=== PATIENT | male | born 1975 | race Caucasian/White ===

== ENCOUNTER 2020-07-17 06:46 | Outpatient (NON) | payer OTHER, SELFPAY ==
[2020-07-17 22:58] LABS: SARS-CoV-2 RNA PCR Negative
== END 2020-07-17 06:47 ==
PROVIDERS: PCP Family Medicine; Visit Provider Nurse Practitioner
DX: Z20.828 Contact with and (suspected) exposure to other viral communicable diseases (principal)
CPT/HCPCS: 87635; C9803; U0003

== ENCOUNTER → 2021-02-12 08:40 | Outpatient (CLI) | payer BC, SELFPAY ==
--- NOTE | ~2021-02-12 | XR_ITS ---
XR hip BI wo pelvis 02/12/2021 09:43 Indication: Hip pain. Cerebral palsy. Procedure: 2 views each hip Comparison: 10/21/2015 Findings: There is mild symmetric osteoarthritis of the hips. No fracture or traumatic malalignment. Pelvic rings are intact. Sacral foramen are symmetric. No significant soft tissue abnormality. No rad iopaque foreign bodies. Impression: 1: Mild symmetric osteoarthritis of the hips. Reviewed, dictated and finalized at location A. Impression: 1: Mild symmetric osteoarthritis of the hips.
--- NOTE | ~2021-02-12 | XR_ITS ---
XR lumbar spine 1V 02/12/2021 09:43 Indication: Cerebral palsy. Back pain. Procedure: Lateral view of the lumbar spine Comparison: No prior studies for comparison. Findings: No acute fracture or traumatic malalignment. No evidence for spondylolisthesis. There are m ild facet degenerative changes at L5-S1. There is mild wedge-shaped appearance to L1, likely developm ental or chronic. No evidence for spondylolisthesis. Impression: 1: Mild lumbar spondylosis. Reviewed, dictated and finalized at location A. Impression: 1: Mild lumbar spondylosis.
== END ==
PROVIDERS: PCP Family Medicine; Visit Provider Nurse Practitioner Family
DX: G80.9 Cerebral palsy, unspecified (principal); M16.0 Bilateral primary osteoarthritis of hip; M47.896 Other spondylosis, lumbar region
CPT/HCPCS: 72020; 73521

== ENCOUNTER 2021-02-18 08:13 | Outpatient (RCR) | payer BC, SELFPAY ==
--- NOTE | 2021-02-18 09:56 | PTOPEVAL ---
PHYSICAL THERAPY EVALUATION AND DISCHARGE Thank you for referring Minor Márquez to [facility].? The patient is not scheduled to be seen for further therapy at this time. We will be happy to work with Minor in the future as needs arise. Please review, sign, date and return this note ODETTE. I agree with and certify that the following plan of care is medically necessary. Referring Physician Date Attending Provider: Shelly Aguayo NP Evaluation Outpatient Past Medical History Neurological History Hx Other Neurological Disorders Yes: cerebral palsy Diagnosis cerebral palsy, LE spasticity Subjective Information Minor is here today for Query Text:As Reported By Patient/ physical therapy evaluation Family seeking selective dorsal rhizotomy procedure as an adult. He presents to clinic ambulating independently with a cane. He reports that he is experiencing changes in the level of spasticity that is causing a decline in function. Over the last month he has taken 3 days off of work because spastic episodes have caused him to be bed ridden and he is finding that even on good days he is less able to participate in activities with his daughter including sitting on the floor to play or being in the yard as the spasticity limits safety and impairs postures to be unable to perform tasks. At this time, he is seeking selective dorsal rhizotomy procedure to reduce spasticity of LE in order to increase his functional abilities and reduce pain. He takes medication for the spasticity and he exercises and stretches at least 2x/week. Prior Level of Function Activity Level (Last 3 Months) Occupation security analyst Medications baclofen and tizanidine Pain Score Pain Score 0: Self Report Gross Lower Extremity Range of Motion tom test: R: -32, L: -29 Comments hip abduction supine: R: 16, L: 11 hip lateral rotation prone: R:36, L: 24 popliteal anmgle: R: -69, L -86 knee extensio
== END 2021-02-21 10:35 | disposition home or self-care (01) ==
LOC: ANHPT 08:13
PROVIDERS: PCP Family Medicine; Visit Provider Nurse Practitioner Family
DX: G80.9 Cerebral palsy, unspecified (principal)
CPT/HCPCS: 97162

== ENCOUNTER 2022-01-03 10:31 | Outpatient (CLI) | payer BC, SELFPAY ==
--- NOTE | ~2022-01-03 | CT_ITS ---
EXAMINATION: CT cervical spine wo con EXAM DATE: 01/03/2022 10:47 INDICATION: T14.8XXA - Other injury of unspecified body region, initi... TECHNIQUE: Spiral CT of the cervical spine was performed without contrast. Axial images were reviewe d. Coronal and sagittal reformatted images cervical spine were also reviewed. The dose-length produc t (DLP) for this examination was 496.24 mGy-cm. The exposure was tailored according to patient size (auto mA exposure control), and iterative reconstruction (ASIR) was used as additional dose reduction technique. There is no prior study for comparison. FINDINGS: No perched facet joint. There are no acute fractures identified. The vertebral bodies are aligned in the AP dimension. The odontoid process is intact. The lateral masses of C1 line up with C2. Prevertebral soft tissue and pre-dens space are within normal limits. There is moderate disc dise ase at C5-6, mild to moderate at the other cervical levels. Paraspinal soft tissue is unremarkable. Level by level evaluation: C2-C3: There is a mild diffuse disc bulge. Uncovertebral joint arthropathy: Moderate right, mild to moderate left. Facet joint arthropathy: Mild bilateral. Neural foraminal stenosis: Mild to moderate right, mild left. Central canal stenosis: Mild. C3-C4: There is a mild diffuse disc bulge. Uncovertebral joint arthropathy: Moderate to severe bilateral. Facet joint arthropathy: Mild to moderate bilateral. Neural foraminal stenosis: Moderate left, mild right. Central canal stenosis: Mild. C4-C5: There is a mild diffuse disc bulge. Uncovertebral joint arthropathy: Moderate right, mild to moderate left. Facet joint arthropathy: Mild to moderate right, mild left. Neural foraminal stenosis: Moderate right, mild left. Central canal stenosis: Mild. C5-C6: There is a moderate diffuse disc bulge. Uncovertebral joint arthropathy: Moderate to severe right, moderate left. Facet joint arthropathy: Mild to moderate bilateral. Neural foraminal stenosis: Moderate to severe bilateral. Central canal stenosis: Mild to moderate. C6-C7: There is a mild to moderate diffuse disc bulge. Uncovertebral joint arthropathy: Mild to moderate bilateral. Facet joint arthropathy: Mild to moderate bilateral. Neural foraminal stenosis: Mild bilateral. Central canal stenosis: Mild. C7-T1: There is a minimal diffuse disc bulge. Uncovertebral joint arthropathy: Mild bilateral. Facet joint arthropathy: Mild to moderate bilateral. Neural foraminal stenosis: No stenosis. Central canal stenosis: No stenosis. IMPRESSION: 1. C5-6 moderate to severe bilateral neural foraminal stenosis. 2. Less spondylosis other levels. Reviewed, dictated and finalized at location B.
== END 2022-01-03 10:32 | disposition home or self-care (01) ==
LOC: ANHIMG 10:34
PROVIDERS: PCP Family Medicine; Visit Provider Nurse Practitioner Family
DX: T14.8XXA Other injury of unspecified body region, initial encounter (principal); M47.813 Spondylosis without myelopathy or radiculopathy, cervicothoracic region; M48.03 Spinal stenosis, cervicothoracic region
CPT/HCPCS: 72125

== ENCOUNTER 2022-03-03 08:43 | Outpatient (CLI) | payer BC, SELFPAY ==
--- NOTE | 2022-03-03 11:45 | NEURO_ITS ---
Impression: # Complains of pain in elbow. # Left ulnar neuropathy across the elbow. # No Carpal Tunnel Syndrome. # Normal needle/EMG exam. Nerve Conduction Studies Anti Sensory Summary Table Stim Site NR Peak (ms) P-T Amp (?V) Site1 Site2 Delta-P (ms) Dist (cm) Alphonse (m/s) Left Median Anti Sensory (2-3nd Digit) Wrist 2.4 59.7 Wrist 2-3nd Digit 2.4 14.0 58 Wrist 2.3 43.1 Wrist 2-3nd Digit 2.4 14.0 58 Left Radial Anti Sensory (Base 1st Digit) Wrist 1.9 24.3 Wrist Base 1st Digit 1.9 0.0 Left Ulnar Anti Sensory (5th Digit) Wrist 2.9 21.2 Wrist 5th Digit 2.9 14.0 48 Motor Summary Table Stim Site NR Onset (ms) O-P Amp (mV) Site1 Site2 Delta-0 (ms) Dist (cm) Alphonse (m/s) Left Median Motor (Abd Poll Brev) Wrist 2.8 3.9 Elbow Wrist 5.0 28.0 56 Elbow 7.8 5.6 Left Ulnar Motor (Abd Dig Minimi) Wrist 2.6 4.4 A Elbow Wrist 5.4 27.0 50 A Elbow 8.0 3.2 B Elbow Wrist 3.3 22.0 67 B Elbow 5.9 6.2 F Wave Studies NR F-Lat (ms) L-R F-Lat (ms) Left Median (Mrkrs) (Abd Poll Brev) 26.55 Left Ulnar (Mrkrs) (Abd Dig Min) 26.11 EMG Side Muscle Nerve Root Ins Act Fibs Amp Dur Recrt Comment Left 1stDorInt Ulnar C8-T1 Nml Nml Nml Nml Nml Left Ext Indicis Radial (Post Int) C7-8 Nml Nml Nml Nml Nml Left Ext Digitorum Radial (Post Int) C7-8 Nml Nml Nml Nml Nml Left BrachioRad Radial C5-6 Nml Nml Nml Nml Nml Left PronatorTeres Median C6-7 Nml Nml Nml Nml Nml Left Abd Poll Brev Median C8-T1 Nml Nml Nml Nml Nml Left ABD Dig Min Ulnar C8-T1 Nml Nml Nml Nml Nml Left Abd Poll Long Radial (Post Int) C7-8 Nml Nml Nml Nml Nml MTDD
== END 2022-03-03 08:44 | disposition home or self-care (01) ==
LOC: ANHNEURO 08:45
PROVIDERS: PCP Family Medicine; Visit Provider Family Medicine
DX: M25.522 Pain in left elbow (principal); G56.22 Lesion of ulnar nerve, left upper limb
CPT/HCPCS: 95886; 95909

== ENCOUNTER 2022-05-25 00:36 | Day surgery (SDC) | payer BC, SELFPAY ==
[2022-05-22 16:09] VITALS: BMI 22.1
--- NOTE | 2022-05-22 16:28 | SUR.PREOP ---
Report to the Outpatient Waiting Room, entrance under the green pavilion located off [facility], at time 0600 on date 05/25/22. OR Time: 0730. - You and your visitor will be asked to self-screen and do not enter if you have any COVID symptoms. - Only one visitor and NO children visitors are allowed at this time. - The patient visitor is requested to leave or wait in car when not with patient due to restrictions. - A mask is required within the hospital. Patients may have clear liquids (water, carbonated beverages, clear teas, apple juice) until 3 hours prior to surgery with a maximum of 20 ounces. - No food from midnight until time of surgery - Infants may have breast milk until 4 hours before surgery, infant formula 6 hours prior to surgery. - Children will be allowed to drink immediately following surgery. If applicable, please bring a bottle or sippy cup to assist with drinking. Juice, water, soda, and popsicles are readily available. For infants on formula, please bring formula the day of surgery. Pacifiers are allowed. Take the following medications with a SIP of water the morning of surgery:FLUOXETINE IF NEEDED Medications to discontinue per physician STOP ALL VITAMINES ASUPPLIMENTS FOR 3 DAYS PRIOR TO PROCEDURE Date to take last dose 05/22/22 Please no make-up, nail georgian, hairspray, perfume, deodorant, or body powder the day of surgery. No jewelry (including any body piercings) or valuables the day of surgery, leave them at home. Please take a shower or bath the night before, or the morning of, surgery with an antibacterial soap. Wear comfortable, loose fitting clothing. Children are encouraged to wear pajamas. - Jewelry must be removed prior to entering the operating room. Rings and piercings that are not removed may be cut off. - The hospital will not accept responsibility for valuables. - Please leave all valuables, including medications, at home the day of surgery. If you are going home after surgery, a licensed warehouse driver must drive you home. - NO public transportation without another adult. - We recommend that an adult stay with you for 24 hours following discharge. - We also recommend that you do not drive, make important decision, drink alcoholic beverages, or take any drugs that were not prescribed by your health care provider for at least 24 hours after your discharge time. For Pediatric surgeries, we recommend two adults accompany the child home (only one inside the building at this time). Follow any additional instructions given to you from your surgeon. If you or anyone in your household have experienced Covid symptoms in the past week, please notify your surgeon or the nurse liaison at the phone number below for possible testing. Telephone instructions given to SON VARNER and asked if any additional questions and then verbalized understanding. Patient advised to call surgeon office or pre surgery nurse liaison [phone] if any additional questions.
[2022-05-25] MEDS: LACTATED RINGERS 1,000 ML 30 ML IV CONT (06:30)
[2022-05-25 07:00] VITALS: BP 138/91; PULSE 66; RESP 16; TEMP 36.2; O2SAT 98
--- NOTE | 2022-05-25 07:05 | P.PNAN_ITS ---
Anes - Initial Pre Proc Eval Procedure: Operation Date: 05/25/22 07:30 Proposed Procedures p Left Ulnar Neuroplasty at Elbow - Gabino Sadler MD Date/Time: 05/25/22 07:05 Surgeon: Gabino Sadler MD Pre Op Diagnosis: left cubital tunnel syndrome Patient Data Age: 46 Gender: M Height: 1.75 m Weight: 68.04 kg Allergies Allergy/AdvReac Type Severity Reaction Status Date / Time lidocaine Allergy Unknown Wheezing Verified 05/22/22 16:09 Home Medications Medication Instructions Recorded Confirmed Type magnesium glycinate 100 mg tablet 200 mg PO DAILY 11/01/21 05/22/22 History fluoxetine 20 mg capsule 20 mg PO DAILY #30 caps 01/31/22 05/22/22 Rx Patient hx anesthesia problems: none Family hx anesthesia problems: none Results Review: All pre-operative results and documents have been reviewed as part of the pre- operative evaluation. PMFSH Past Medical History Medical History Anxiety Arthritis Cerebral palsy Shingles Surgical History Surgical History Hx of lumbosacral spine surgery (~07/01/21) Selective Spinal Rhizotomy surgery Family History Family History Mother Hypertension Family history of malignant neoplasm of breast in first degree relative Father Family history of lymphoma, Onset Age: 68 Patient's father is in good health Grandparent Family history of lung cancer, Onset Age: 84 Family history of malignant neoplasm of brain, Onset Age: 52 Social History Social History Smoking status: Never smoker Alcohol intake: never Substance use: never Substance use type: does not use Living arrangements: with family Gender identity (if verbalized by the patient): Female Spiritual care concerns: No Anes - Eval Final PreProcedure Day of Procedure 05/25/22 07:05 Patient weight: normal Heart: regular rate and rhythm Lungs: clear to auscultation Airway: Mallampati scale class II Neurological: alert and oriented Last oral intake: >/= 8 hours ASA classification: II Emergent: no Anesthetic plan: proceed Anesthesia type and monitoring: general GIVS and standard monitoring Results Review: All pre-operative results and documents have been reviewed as part of the pre- operative evaluation. Informed Consent: The patient's anesthetic plan and its attendant risks and benefits were discussed with the patient/family/POA. Questions were solicited and answers provided to the satisfaction of the patient/family/POA.
--- NOTE | 2022-05-25 07:05 | WPDHPUPDATE1 ---
History and Physical Update Update Date/Time: 05/25/22 07:05 History and Physical has been reviewed, including an updated exam of the patient. There are NO changes in the patient's condition. Risks, benefits, and alternatives have been discussed and questions answered. Patient agrees to proceed with procedure.
[2022-05-25] MEDS: BACITRACIN OINTMENT 15 GM TUBE 1 APPLIC TOPICAL (07:54)
[2022-05-25] MEDS: LIDO 1%/EPINEPHRINE 1:100,000 50 ML VIAL 10 ML INFILTRATE (07:54)
[2022-05-25 08:21] VITALS: BP 94/64; PULSE 61; RESP 12; O2SAT 94
[2022-05-25 08:50] VITALS: BP 142/78; PULSE 61; RESP 14; O2SAT 99
--- NOTE | 2022-05-25 08:58 | W.PM.PROC2 ---
Procedure Note - Detailed Date of Procedure 05/25/22 Pre-op Diagnosis left cubital tunnel syndrome Post-op Diagnosis Same Procedure Performed Left ulnar neuroplasty at the elbow Surgeon Gabino Sadler MD Plate Slitter And Inspector [facility] Description of Procedure The left cubital tunnel area was marked on the patient waiting in the holding area. He was taken to the operating room where he was placed supine on the operating table. He was given IV sedation. The extremity was prepped and draped in usual fashion. Time-out was held and confirmed. The site was remarked for the surgical incision. The elbow was elevated on folded towels and flexed. The area was infiltrated with 1% lidocaine with epinephrine. Extremity was exsanguinated and the tourniquet inflated to 250 mmHg. Incision was made as marked and dissection was carried bluntly through the subcutaneous tissue to the deep fascia. Several sites were cauterized. The fascia was opened over the ulnar nerve. This was explored proximally and releasing few areas but allowing passage of the finger along that route. Dissection was continued distally dividing Lopez's ligament. Extension under the flexor muscle fascia revealed no additional constrictions there. The nerve did not sublux. The tourniquet was released no significant bleeding was noted. The skin was repaired with intradermal 3-0 Monocryl sutures at several sites. Glue was applied to the skin.. The usual bandage was applied. The patient was discharged from the operating room stable condition. A prescription for hydrocodone 7. Was sent to his pharmacy. Estimated Blood Loss 0 Drains No Packing No Pathology None sent Complications No immediate complications Condition Stable Disposition Same day
[2022-05-25 09:20] VITALS: BP 123/80; PULSE 59; RESP 14
[2022-05-25 09:30] VITALS: BP 139/77; PULSE 64; RESP 14
== END 2022-05-25 09:39 | disposition home or self-care (01) ==
PROVIDERS: PCP Family Medicine; Visit Provider Plastic Surgery
PROC: (CPT 64718; principal; 2022-05-25 07:30)
DX: G56.22 Lesion of ulnar nerve, left upper limb (principal); F41.9 Anxiety disorder, unspecified; M19.90 Unspecified osteoarthritis, unspecified site; G80.9 Cerebral palsy, unspecified
CPT/HCPCS: 64718; A9270; J2250; J2704; J3010; J7120

== ENCOUNTER 2022-11-20 09:46 | Outpatient (CLI) | payer BC, SELFPAY ==
[2022-11-20 10:18] LABS: Kit Draw Collected
== END 2022-11-20 09:47 | disposition home or self-care (01) ==
LOC: ANHGOSHLAB 09:49
PROVIDERS: PCP Family Medicine; Visit Provider Nurse Practitioner
DX: E78.5 Hyperlipidemia, unspecified (principal); E55.9 Vitamin D deficiency, unspecified
CPT/HCPCS: 36415

== ENCOUNTER 2022-12-29 01:31 | Day surgery (SDC) | payer BC, SELFPAY ==
[2022-12-18 15:15] VITALS: BMI 22.8
--- NOTE | 2022-12-29 08:31 | WPDANESEPPF ---
Anes - Initial Pre Proc Eval Procedure: Operation Date: 12/29/22 09:30 Proposed Procedures p Screening Colonoscopy - Arie Franco MD Date/Time: 12/29/22 08:31 Surgeon: Arie Franco MD Pre Op Diagnosis: neoplasm screening Patient Data Age: 47 Gender: M Height: 1.73 m Weight: 68.3 kg Allergies Allergy/AdvReac Type Severity Reaction Status Date / Time lidocaine Allergy Unknown Wheezing Verified 12/29/22 08:35 Home Medications Medication Instructions Recorded Confirmed Type magnesium glycinate 100 mg tablet 200 mg PO DAILY 11/01/21 12/29/22 History fluoxetine 20 mg capsule 20 mg PO DAILY #90 caps 11/14/22 12/29/22 Rx cholecalciferol (vitamin D3) 1,250 1,250 mcg PO WEEKLY #14 caps 11/21/22 12/29/22 Rx mcg (50,000 unit) capsule atorvastatin 40 mg tablet 40 mg PO DAILY #90 tabs 11/22/22 12/29/22 Rx Patient hx anesthesia problems: none Family hx anesthesia problems: none Results Review: All pre-operative results and documents have been reviewed as part of the pre-operative evaluation. [facility] Past Medical History Medical History (Updated 12/29/22 @ 08:32 by Chau Mitchell DO) Anxiety Arthritis Cerebral palsy Hyperlipidemia Shingles Ulnar neuropathy at elbow of left upper extremity Surgical History Surgical History Hx of lumbosacral spine surgery (~07/01/21) Selective Spinal Rhizotomy surgery Family History Family History Mother Hypertension Family history of malignant neoplasm of breast in first degree relative Father Family history of lymphoma, Onset Age: 68 Patient's father is in good health Grandparent Family history of lung cancer, Onset Age: 84 Family history of malignant neoplasm of brain, Onset Age: 52 Social History Social History Social History: Caffeine-daily Smoking status: Never smoker Alcohol intake: never Substance use: never Substance use type: does not use Lack of Transportation: No Lack of Food: Never True Current Housing: I Have Housing Concerned About Future Housing: No Difficulty Paying Gas/Electric Bills: No Difficulty Paying for Meds: No Currently Unemployed: No Education: Bachelor's Degree Difficulty w/ Childcare or Family Care: No Living arrangements: with family Occupation/Education: occupation Gender identity (if verbalized by the patient): Female Spiritual care concerns: No Anes - Eval Final PreProcedure Day of Procedure 12/29/22 08:31 Patient weight: normal Heart: regular rate and rhythm Lungs: clear to auscultation and normal air movement Airway: Mallampati scale class II Neurological: alert and oriented Last oral intake: >/= 8 hours ASA classification: III Emergent: no Anesthetic plan: proceed Anesthesia type and monitoring: general GIVS and standard monitoring Results Review: All pre-operative results and documents have been reviewed as part of the pre-operative evaluation. Informed Consent: The patient's anesthetic plan and its attendant risks and benefits were discussed with the patient/family/POA. Questions were solicited and answers provided to the satisfaction of the patient/family/POA.
[2022-12-29 08:36] VITALS: BP 131/83; PULSE 68; RESP 17; TEMP 36.2; O2SAT 98; BMI 23.1
[2022-12-29] MEDS: LACTATED RINGERS 1,000 ML 150 ML IV CONT (08:47)
--- NOTE | 2022-12-29 09:14 | PM.HPGS ---
History of Present Illness History of Present Illness Consent: Risks, benefits, and alternatives have been discussed and questions answered. Patient agrees to proceed with procedure. Chief complaint: neoplasm screening Narrative: Minor Márquez is a 47 year old male here for first screening colonoscopy Review of Systems Constitutional: Constitutional: Denies headache(s) and Denies weakness Eyes: Eyes: Denies blurry vision ENT: Reports Normal hearing present, Denies headache(s) and Denies neck pain Cardiovascular: Cardiovascular: Denies chest pain and Denies dyspnea Respiratory: Respiratory: Denies dyspnea Gastrointestinal: Gastrointestinal: Reports no additional gastrointestinal complaints Genitourinary: Genitourinary: Denies dysuria Musculoskeletal: Musculoskeletal: Denies neck pain Integumentary/Breasts: Skin/Breast: Denies dry skin Neurologic: Reports Normal hearing present, Denies headache(s) and Denies weakness Psychiatric: Psychiatric: Denies anxiety Endocrine: Endocrine: Denies change in body appearance Hematologic/Lymphatic: Hematologic/Lymphatic: Denies easy bleeding Allergic/Immunologic: Allergic/Immunologic: Denies urticaria PMFSH Past Medical History Medical History (Updated 12/29/22 @ 09:15 by Arie Franco MD) Anxiety Arthritis Cerebral palsy Colon cancer screening Hyperlipidemia Shingles Ulnar neuropathy at elbow of left upper extremity Surgical History Surgical History Hx of lumbosacral spine surgery (~07/01/21) Selective Spinal Rhizotomy surgery Family History Family History Mother Hypertension Family history of malignant neoplasm of breast in first degree relative Father Family history of lymphoma, Onset Age: 68 Patient's father is in good health Grandparent Family history of lung cancer, Onset Age: 84 Family history of malignant neoplasm of brain, Onset Age: 52 Social History Social History Social History: Caffeine-daily Smoking status: Never smoker Alcohol intake: never Substance use: never Substance use type: does not use Lack of Transportation: No Lack of Food: Never True Current Housing: I Have Housing Concerned About Future Housing: No Difficulty Paying Gas/Electric Bills: No Difficulty Paying for Meds: No Currently Unemployed: No Education: Bachelor's Degree Difficulty w/ Childcare or Family Care: No Living arrangements: with family Occupation/Education: occupation Gender identity (if verbalized by the patient): Female Spiritual care concerns: No Meds Home Medications and Allergies Home Medications Medication Instructions Recorded Confirmed Type magnesium glycinate 100 mg tablet 200 mg PO DAILY 11/01/21 12/29/22 History fluoxetine 20 mg capsule 20 mg PO DAILY #90 caps 11/14/22 12/29/22 Rx cholecalciferol (vitamin D3) 1,250 1,250 mcg PO WEEKLY #14 caps 11/21/22 12/29/22 Rx mcg (50,000 unit) capsule atorvastatin 40 mg tablet 40 mg PO DAILY #90 tabs 11/22/22 12/29/22 Rx Allergies Allergy/AdvReac Type Severity Reaction Status Date / Time lidocaine Allergy Unknown Wheezing Verified 12/29/22 08:35 Vital Signs Vital Signs - 24 hr 12/29/22 08:36 Temperature 97.1 F L Pulse Rate 68 Respiratory Rate 17 Blood Pressure 131/83 Pulse Oximetry 98 Oxygen Delivery Room Air Exam Const: General: comfortable and no acute distress HENMT: Face/Nose/Sinus: Normal nares present Eyes: General: appearance normal, both eyes and all related structures Neck: Neck: no JVD Resp: Auscultation: clear to auscultation bilaterally Cardio: Rate: regular rate Rhythm: regular rhythm GI: Inspection: non-distended GI Palp: Yes Soft to palpation Skin: General skin exam: normal color Neuro: General: gait normal Speech: norm
[2022-12-29 09:35] VITALS: BP 91/68; PULSE 73; RESP 17; O2SAT 95
[2022-12-29 09:45] VITALS: BP 98/64; PULSE 63; RESP 14; O2SAT 95
[2022-12-29 09:55] VITALS: BP 102/70; PULSE 72; RESP 23; O2SAT 98
[2022-12-29 10:05] VITALS: BP 110/71; PULSE 63; RESP 18; O2SAT 98
== END 2022-12-29 10:12 | disposition home or self-care (01) ==
PROVIDERS: PCP Family Medicine; Visit Provider Internal Medicine Gastroenterology
PROC: 0DJD8ZZ Inspection of Lower Intestinal Tract, Via Natural or Artificial Opening Endoscopic (ICD-10-PCS; CPT 45378; principal; 2022-12-29 09:30)
DX: Z12.11 Encounter for screening for malignant neoplasm of colon (principal); K64.8 Other hemorrhoids; G80.9 Cerebral palsy, unspecified; E78.5 Hyperlipidemia, unspecified; F41.9 Anxiety disorder, unspecified
CPT/HCPCS: 45378; J2704; J7120

== ENCOUNTER 2023-05-28 08:26 | Outpatient (CLI) | payer BC, SELFPAY ==
[2023-05-28 11:48] LABS: Alanine Aminotransferase 40 U/L (6-50); Alkaline Phosphatase 72 U/L (38-126); Anion Gap 1 mmol/L (8-16); Aspartate Amino Transferase 57 U/L (17-59); Bilirubin,Total 0.5 mg/dL (0.2-1.3); Blood Urea Nitrogen 19 mg/dL (9-20); Calcium 8.7 mg/dL (8.4-10.2); Carbon Dioxide 30 mmol/L (22-30); Chloride 104 mmol/L (98-107); Cholesterol 161 mg/dL (0-200); Estimated Glomerular Filt Rate > 60; Glucose 88 mg/dL (65-110); HDL Direct 33 mg/dL; Sodium 135 mmol/L (137-145); Triglycerides 101 mg/dL (<150)
[2023-05-28 11:54] LABS: LDL Cholesterol Direct 99 mg/dL
[2023-05-28 12:18] LABS: Vitamin D 25 Hydroxy 71.6 ng/mL
== END 2023-05-28 08:27 | disposition home or self-care (01) ==
PROVIDERS: PCP Family Medicine; Visit Provider Family Medicine
DX: E78.5 Hyperlipidemia, unspecified (principal); E55.9 Vitamin D deficiency, unspecified; F41.9 Anxiety disorder, unspecified; Z79.899 Other long term (current) drug therapy
CPT/HCPCS: 36415; 80053; 80061; 82306

== ENCOUNTER 2024-06-06 09:23 | Outpatient (CLI) | payer BC, SELFPAY ==
[2024-06-06 14:39] LABS: Basophils Percent Auto 0.5 % (0.2-1.2); Eosinophils Absolute Auto 0.1 K/mm3 (0-0.3); Eosinophils Percent Auto 1.6 % (0-4.4); Hematocrit 47.6 % (42.0-52.0); Hemoglobin 15.1 g/dL (14.0-18.0); Immature Granulocyte Absolute 0.01 K/mm3 (0.00-0.031); Immature Granulocyte Percent A 0.2 % (0-0.5); Lymphocytes Absolute Auto 1.47 K/mm3 (0.9-3.2); Lymphocytes Percent Auto 23.2 % (18.3-44.2); Mean Corpuscular HGB Conc 31.7 g/dl (32-36); Mean Corpuscular Hemoglobin 28.8 pg (26-34); Mean Corpuscular Volume 90.8 fl (80-100); Mean Platelet Volume 11.2 fl (7.4-10.4); Monocytes Absolute Auto 0.5 K/mm3 (0.1-0.6); Neutrophils Absolute Auto 4.2 K/mm3 (1.3-6.7); Neutrophils Percent Auto 66.5 % (45.5-73.1); Platelet Count Result 195 k/mm3 (150-375); Red Blood Count 5.24 M/mm3 (4.6-6.20); White Blood Count 6.3 K/mm3 (4.5-10.0)
[2024-06-06 14:46] LABS: Alanine Aminotransferase 65 U/L (6-50); Albumin Level 4.1 g/dL (3.5-5.1); Alkaline Phosphatase 78 U/L (38-126); Anion Gap 8 mmol/L (4-12); Aspartate Amino Transferase 82 U/L (17-59); Bilirubin,Total 0.7 mg/dL (0.2-1.3); Blood Urea Nitrogen 17 mg/dL (9-20); Calcium 8.8 mg/dL (8.4-10.2); Carbon Dioxide 30 mmol/L (22-30); Chloride 99 mmol/L (98-107); Cholesterol 155 mg/dL (0-200); Estimated Glomerular Filt Rate > 60; Glucose 88 mg/dL (65-110); HDL Direct 38 mg/dL; Sodium 137 mmol/L (137-145); Triglycerides 75 mg/dL (<150)
[2024-06-06 15:03] LABS: LDL Cholesterol Direct 95 mg/dL
[2024-06-06 15:07] LABS: Thyroid Stimulating Hormone 0.768 uIU/mL (0.465-4.680)
== END 2024-06-06 09:24 | disposition home or self-care (01) ==
LOC: ANHGOSHLAB 09:25
PROVIDERS: PCP Family Medicine; Visit Provider Student in an Organized Health Care Education/Training Program
DX: Z13.29 Encounter for screening for other suspected endocrine disorder (principal); E55.9 Vitamin D deficiency, unspecified; E78.5 Hyperlipidemia, unspecified; Z13.0 Encounter for screening for diseases of the blood and blood-forming organs and certain disorders involving the immune mechanism
CPT/HCPCS: 36415; 80053; 80061; 82306; 84443; 85025

== ENCOUNTER 2024-09-02 12:35 | Outpatient (CLI) | payer BC, SELFPAY ==
[2024-09-02 16:54] LABS: Strep Group A RT-PCR NOT DETECTED (Negative)
[2024-09-02 17:05] LABS: Influenza A QL RT-PCR Negative (Negative); Influenza B QL RT-PCR Negative (Negative); RSV RNA, RT-PCR Negative (Negative); SARS-CoV-2 RNA PCR Negative (Negative)
== END 2024-09-02 12:36 | disposition home or self-care (01) ==
LOC: ANHGOSHLAB 12:36
PROVIDERS: PCP Family Medicine; Visit Provider Family Medicine
DX: J02.9 Acute pharyngitis, unspecified (principal); Z20.822 Contact with and (suspected) exposure to COVID-19
CPT/HCPCS: 87637; 87651

== ENCOUNTER 2025-03-09 09:23 | Outpatient (CLI) | payer BC, SELFPAY ==
--- OUTSIDE RECORDS SUMMARY | 2025-03-09 09:41 | XMS_ITS | CONTINUITY OF CARE DOCUMENT ---
Author Name ayaka marley Address Unknown Organization [facility] Address [address] [place] [address] Phone [phone] Care Team Providers Care Health And Safety Director Name Role Phone ayaka marley Unavailable Unavailable
--- OUTSIDE RECORDS SUMMARY | 2025-03-09 09:41 | XMS_ITS | Clinical Summary ---
Author Organization [facility] Address [address] [place] [address] Care Team Providers Care Vice President Investor Relations Name Role Phone Pepito Roman MD Primary Care Provider Source Comments [facility],non-owned Affiliates and Associated Physician Practices is amultiple site organization consisting of ambulatory clinics and hospital sitesin [place], [place], [place] and [place]. This disclosure is being madepursuant to the Care Everywhere program and may not contain all information available regarding this patient. Last updated 18.[facility] Allergies Active Allergy Reactions Criticality Noted Date Comments Lidocaine Shortness of Breath High 05/06/2015 Medications * Be aware that medications may not be up to date on this document. Alwaysverify current medications with the patient. Multiple Vitamin (MULTI VITAMIN DAILY) TABS Active baclofen (LIORESAL) 20 MG tabletIndicatio ns:Spasticity Take 1 tablet by mouth 3 times daily May cause drowsiness. 270 tablet 11 0 Active Additional Information Patient taking differently: 60 mgOral 3 TIMES DAILY, May cause drowsiness., Reported on 11/26/2020 FLUoxetine (PROZAC) 20 MG capsule Take 20 mg by mouth once daily Active tiZANidine (ZANAFLEX) 2 MG tablet TAKE ONE TABLET BY MOUTH EVERY 8 HOURS NEEDED FOR MUSCLE SPASTICITY 90 tablet 9 1 Active Active Problems No known active problems Immunizations Immunization Administration Dates Next Due INFLUENZA VACCINE, TRIV. (AF LURIA, FLUZONE TRIVALENT; 6MO+) (IIV3) 08/27/2015,08/22/2014 INFLUENZA VACCINE, QUADR. 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 [employer] Gender Identity Male 10/25/2019 8:40 AM FABRICATOR [employer] Sexual Orientation Not on file Last Filed Vital Signs Vital Sign Reading Time Taken Comments Blood Pressure 122/81 11/26/2020 11:49 AM FABRICATOR [employer] Pulse 66 11/26/2020 11:49 AM FABRICATOR [employer] Temperature 36.7 C (98 F) 11/26/2020 11:49 AM FABRICATOR [employer] Respiratory Rate 16 10/26/2019 9:34 AM FABRICATOR [employer] Oxygen Saturation 95% 11/26/2020 11:49 AM FABRICATOR [employer] Inhaled Oxygen Concentration - - Weight 65 kg (143 lb 4.8 oz) 11/26/2020 11:49 AM FABRICATOR [employer] Height 170.2 cm (5' 7) 11/26/2020 11:49 AM FABRICATOR [employer] Body Mass Index 22.44 11/26/2020 11:49 AM FABRICATOR [employer] Plan of Treatment Health Maintenance Due Date Last Done Comments COLOGUARD (AGES 45-75) - COL ON CA SCREENING 1975 COLON MONITORING 1975 COLONOSCOPY - COLON CA SCREENING 1975 CT COLONOGRAPHY - COLON CA SCREENING 1975 Colorectal Cancer Screening 1975 FIT - COLON CA SCREENING 1975 FLEX SIG - COLON CA SCREENING 1975 LIPID TESTING 1975 HIV SCREENING 1990 HEPATITIS C SCREENING 06/12/1993 HEPATITIS B VACCINE (1 of 3 - 19+ 3-dose series) 1994 DTAP/TDAP/TD VACCINES (2 - T d or Tdap) 01/08/2022 01/09/2012 COVID-19 VACCINE (1 - 2023-2 5 season) 2024 DEPRESSION SCREENING 10/08/2024 INFLUENZA VACCINE (Season Ended) 2025 07/10/2020, 08/27/2015, 08/22/2014 ZOSTER VACCINE (1 of 2) 2025 HIB VACCINE Aged Out No longer eligi ble based on patient's age to complete this topic HPV VACCINE Aged Out No longer eligi ble based on patient's age to complete this topic MENINGOCOCCAL (Group B) VACCINE SHARED DECISION-MAKING Aged Out No longer eligible based on patient's age to complete this topic MENINGOCOCCAL GROUPS A/C/Y/W VACCINE Aged Out No longer eligible b ased on patient's age to complete this topic Insurance [facility] Care Teams Vice President Investor Relations Relationship Specialty Start Date End Date Pepito Roman MD [address] [place] [address] PCP - General 08/23/20
--- OUTSIDE RECORDS SUMMARY | 2025-03-09 09:41 | XMS_ITS | Referral Summary ---
Author Organization [facility] Address [address] [place] [address] Care Team Providers Care Credit Investigator Name Role Phone Pepito Roman MD Primary Care Provider Spenser Duggan MD Unavailable Allergies Active Allergy Reactions Criticality Noted Date Comments Lidocaine Shortness of breath High 05/06/2015 Tolerated bupivacaine epidural without issue Medications FLUoxetine (PROzac) 20 mg capsuleIndicati ons:depression Take 20 mg by mouth nightly Active baclofen (LIORESAL) 20 mg tablet Take 20 mg by mouth 3 (three) times a day 0 Active tiZANidine (ZANAFLEX) 2 mg tablet TAKE ONE TABLET BY MOUTH EVERY 8 HOURS NEEDED FOR MUSCLE SPASTICITY 1 Active ibuprofen (ibuprofen) 200 mg tab/capIndicati ons:Pain Take 200 mg by mouth every 6 (six) hours as needed for pain Active diazePAM (VALIUM) 5 mg tablet Take 1 tablet (5 mg total) by mouth every 6 (six) hours as needed for anxiety 30 tablet 1 Active oxyCODONE (ROXICODONE) 5 mg immediate release tabletIndicatio ns:Pain Take 1 tablet (5 mg total) by mouth every 4 (four) hours as needed for pain for up to 30 doses 30 tablet 1 Active acetaminophen (TYLENOL) 500 mg tablet Take 1 tablet (500 mg total) by mouth every 6 (six) hours as needed for pain 30 tablet 1 Active ibuprofen (ADVIL,MOTRIN) 600 mg tablet Take 1 tablet (600 mg total) by mouth every 6 (six) hours as needed for pain Active Additional Information Patient taking differently:600 mg oral Every 6 hours PRN, pain,900mg at night, 600 during the day, Reported on 08/02/2021 gabapentin (Neurontin) 300 mg capsuleIndicati ons:Neuropathic Pain 300 mg in the am and 600 mg in the evening 90 capsule 2 2 Active Active Problems Problem Noted Date Diagnosed Date Spastic diplegia 06/30/2021 Acute diffuse otitis externa of left ear 020 Assessment & Plan (10/31/2019 11:36 AM CRAPS MANAGER): Increase the Cipro ear drops to 10 drops into the left ear twice daily for 5 days or until the drops run out. How to Use Ear Drops Warm them up in your hand or under your arm for 2 minutes Then lay on your side with ear to have drops placed up Then pull back on the ear to open the ear canal Place the drops, then massage outer portion of ear to distribute ear drops for 2 seconds Let the drops sit in the ear for [address] cotton ball and sit up Remove the cotton ball after less than ten minutes Repeat if instructed to the other ear Avoid ear cleaning techniques Avoid water to ear Impacted cerumen of left ear 10/31/2019 Assessment & Plan (10/31/2019 11:36 AM CRAPS MANAGER): Increase the Cipro ear drops to 10 drops into the left ear twice daily for 5 days or until the drops run out. Social History Tobacco Use Types Packs/Day Years Used Date Smoking Tobacco: Never Smokeless Tobacco: Never Alcohol Use Standard Drinks/Week Comments Not Currently 0 (1 standard drink = 0.6 oz pur e alcohol) AUDIT-C Answer Date Recorded Q1: How often do you have a drink containing alc ohol? Never 07/01/2021 Average Number of Drinks Not on file 021 Frequency of Binge Drinking Not on file 06/09 Sex and Gender Information Value Date Recorded Sex Assigned at Not on file Legal Sex Male 11:10 AM CRAPS MANAGER Gender Identity Male 05/29/2021 5:00 PM CDT Sexual Orientation Straight 05/29/2021 5: 00 PM CDT Last Filed Vital Signs Vital Sign Reading Time Taken Comments Blood Pressure 152/108 08/08/2023 11:00 AM CDT Pulse 88 08/08/2023 11:00 AM CDT Temperature 37.2 C (99 F) 07/07/2021 12:14 AM CDT Respiratory Rate 18 07/07/2021 12:14 AM CDT Oxygen Saturation 96% 08/08/2023 11:00 AM CDT Inhaled Oxygen Concentration - - Weight 66 kg (145 lb 8 oz) 07/01/2021 3:30 PM CD T Height 170.2 cm (5' 7) 07/01/2021 3:30 PM CDT Body Mass Index 22.79 07/01/2021 3:30 PM CDT Plan of Treatment Not on file Insurance [employer] [place] [employer] [place] [address] [place] [address] [employer] Advance Directives For more information, please contact: [phone] * Full Code (Latest Code Status on File) Date Activated Date Inactivated Comments 07/01/2021 3:26 PM 07/07/2021 6:00 PM Care Teams Credit Investigator Relationship Specialty Start Date End Date Pepito Roman MD PCP - General Family Practice 03/23/21 Spenser Duggan MD Referring Physician Pediatric Neurosurgery 07/07/21
--- OUTSIDE RECORDS SUMMARY | 2025-03-09 09:41 | XMS_ITS | Clinical Summary ---
Author Organization [facility] Address [address] [place] [address] Care Team Providers Care Reel And Rewinder Operator Name Role Phone Pepito Roman MD Primary Care Provider Spenser Duggan MD Unavailable [phone] Allergies Active Allergy Reactions Criticality Noted Date [...] 020 Assessment & Plan (10/31/2019 11:36 AM EXECUTIVE BUSINESS COACH): Increase the Cipro ear drops to 10 [...] 10/31/2019 Assessment & Plan (10/31/2019 11:36 AM EXECUTIVE BUSINESS COACH): Increase the Cipro ear drops to 10 drops into the left ear twice daily for 5 days or until the drops run out. Surgical History Surgery Date Site/Laterality Comments ACHILLES TENDON LENGTHENING Bilateral WISDOM TOOTH EXTRACTION Medical History Medical History Date Comments Cerebral palsy (HCC) Family History Medical History Relation Name Comments Anesthesia problems Neg Hx Social History Tobacco Use Types Packs/Day Years [...] on file Legal Sex Male 11:10 AM EXECUTIVE BUSINESS COACH Gender Identity Male 05/29/2021 5:00 PM CDT Sexual Orientation Straight 05/29/2021 5: 00 PM CDT Obstetrics History Last Filed Vital Signs Vital Sign Reading [...] Plan of Treatment Not on file Insurance [employer] [place] [address] [place] [employer] Advance Directives For more information, please contact: [phone] * Full Code (Latest Code Status on File) Date Activated Date Inactivated Comments 07/01/2021 3:26 PM 07/07/2021 6:00 PM Care Teams Reel And Rewinder Operator Relationship Specialty Start Date End Date Pepito Roman MD PCP - General Family Practice 03/23/21 Spenser Duggan MD Referring Physician Pediatric Neurosurgery 07/07/21
[2025-03-09 14:25] LABS: Basophils Percent Auto 0.6 % (0.2-1.2); Eosinophils Absolute Auto 0.2 K/mm3 (0-0.3); Eosinophils Percent Auto 2.4 % (0-4.4); Hematocrit 50.5 % (42.0-52.0); Hemoglobin 15.9 g/dL (14.0-18.0); Immature Granulocyte Absolute 0.01 K/mm3 (0.00-0.031); Immature Granulocyte Percent A 0.2 % (0-0.5); Lymphocytes Absolute Auto 1.51 K/mm3 (0.9-3.2); Lymphocytes Percent Auto 23.7 % (18.3-44.2); Mean Corpuscular HGB Conc 31.5 g/dl (32-36); Mean Corpuscular Hemoglobin 28.7 pg (26-34); Mean Corpuscular Volume 91.2 fl (80-100); Mean Platelet Volume 11.1 fl (7.4-10.4); Monocytes Absolute Auto 0.5 K/mm3 (0.1-0.6); Monocytes Percent Auto 8.3 % (2.6-8.5); Neutrophils Absolute Auto 4.1 K/mm3 (1.3-6.7); Neutrophils Percent Auto 64.8 % (45.5-73.1); Platelet Count Result 200 k/mm3 (150-375); Red Blood Count 5.54 M/mm3 (4.6-6.20); Red Cell Distribution Width 12.8 % (11.5-14.5); White Blood Count 6.4 K/mm3 (4.5-10.0)
[2025-03-09 14:51] LABS: Vitamin D 25 Hydroxy 63.3 ng/mL
[2025-03-09 15:14] LABS: Alanine Aminotransferase 38 U/L (6-50); Albumin Level 4.5 g/dL (3.5-5.1); Alkaline Phosphatase 77 U/L (38-126); Anion Gap 6 mmol/L (4-12); Aspartate Amino Transferase 46 U/L (17-59); Bilirubin,Total 0.8 mg/dL (0.2-1.3); Blood Urea Nitrogen 24 mg/dL (9-20); Calcium 9.5 mg/dL (8.4-10.2); Carbon Dioxide 33 mmol/L (22-30); Chloride 100 mmol/L (98-107); Cholesterol 188 mg/dL (0-200); Estimated Glomerular Filt Rate > 60; Glucose 80 mg/dL (65-110); HDL Direct 40 mg/dL; Potassium 4.5 mmol/L (3.4-5.0); Sodium 139 mmol/L (137-145); Triglycerides 108 mg/dL (<150)
[2025-03-09 15:25] LABS: LDL Cholesterol Direct 112 mg/dL
[2025-03-09 15:44] LABS: Hemoglobin A1C 5.5 % (<5.7)
== END 2025-03-09 09:24 | disposition home or self-care (01) ==
LOC: ANHGOSHLAB 09:24
PROVIDERS: PCP Nurse Practitioner Family; Visit Provider Family Medicine
DX: R73.9 Hyperglycemia, unspecified (principal); E53.8 Deficiency of other specified B group vitamins; E55.9 Vitamin D deficiency, unspecified; Z00.00 Encounter for general adult medical examination without abnormal findings; R74.8 Abnormal levels of other serum enzymes; E78.5 Hyperlipidemia, unspecified; I10 Essential (primary) hypertension
CPT/HCPCS: 36415; 80053; 80061; 82306; 82607; 83036; 84443; 85025